=== PATIENT | male | born 1965 | race Caucasian/White ===

== ENCOUNTER → 2018-06-02 | Outpatient (CLI) | payer OTHER ==
[2018-06-02 12:49] LABS: BASOPHILS # (AUTO) 0.03 x10^3/uL (0-0.1); BASOPHILS % (AUTO) 0 % (0-1); EOSINOPHILS # (AUTO) 0.12 x10^3/uL (0-0.4); EOSINOPHILS % (AUTO) 1 % (1-7); LYMPHOCYTES # (AUTO) 2.12 x10^3/uL (1-3.4); LYMPHOCYTES % (AUTO) 21 % (22-44); MD NO; MEAN CORPUSCULAR HEMOGLOBIN 30.3 pg (27.5-34.5); MEAN CORPUSCULAR VOLUME 86.5 fL (81-97); MEAN PLATELET VOLUME 7.1 fL (7.4-10.4); MONOCYTES # (AUTO) 0.57 x10^3/uL (0.2-0.8); MONOCYTES % (AUTO) 6 % (2-9); NEUTROPHILS # (AUTO) 7.44 x10^3/uL (1.8-6.8); NEUTROPHILS % (AUTO) 72 % (42-75); PLATELET COUNT 246 x10^3/uL (130-400); RED BLOOD COUNT 5.59 x10^6/uL (4.38-5.82)
[2018-06-02 13:02] LABS: ANION GAP 6 mmol/L (5-15); CHLORIDE 105 mmol/L (98-107)
[2018-06-02 13:07] LABS: ALANINE AMINOTRANSFERASE 38 U/L (12-78); ALKALINE PHOSPHATASE 68 U/L (45-117); BILIRUBIN,TOTAL 1.2 mg/dL (0.2-1.0); CHOL/HDL RATIO 2.6; CHOLESTEROL, TOTAL 111 mg/dL (140-239); CREATININE 1.08 mg/dL (0.7-1.3); HDL CHOL % 38 % (26-37); HDL CHOLESTEROL (DIRECT) 42 mg/dL (40-60); LDL CHOLESTEROL,CALCULATED 35 mg/dL (54-169); LDL/HDL RATIO 0.8 (0.5-3.0); TOTAL PROTEIN 7.1 g/dL (6.4-8.2); TRIGLYCERIDES 170 mg/dL (50-200); VLDL CHOLESTEROL 34 mg/dL (0-25)
== END | disposition home or self-care (01) ==
LOC: LAB 12:25
PROVIDERS: ATTEND Internal Medicine Clinical Cardiac Electrophysiology
DX: I10 Essential (primary) hypertension (principal); E78.5 Hyperlipidemia, unspecified
CPT/HCPCS: 36415; 80053; 80061; 85025

== ENCOUNTER → 2018-06-02 | Outpatient (CLI) | payer OTHER | END | disposition home or self-care (01) | LOC: CVU 09:52 | PROVIDERS: ATTEND Internal Medicine Clinical Cardiac Electrophysiology | DX: I35.8 Other nonrheumatic aortic valve disorders (principal); I10 Essential (primary) hypertension; E78.5 Hyperlipidemia, unspecified | CPT/HCPCS: 93017; 93306 ==